=== PATIENT | male | born 1990 | race Caucasian/White ===

== ENCOUNTER 2018-07-28 01:49 | Emergency (ER) | payer SELFPAY ==
[~2018-07-28] VITALS: Ht 167.6 cm; Wt 93.0 kg
[2018-07-28 01:51] VITALS: BP 122/76
== END 2018-07-28 06:48 | disposition left against medical advice (07) ==
LOC: ER 01:49
DX: F10.10 Alcohol abuse, uncomplicated (principal); Z53.21 Procedure and treatment not carried out due to patient leaving prior to being seen by health care provider